=== PATIENT | female | born 1980 | race African-American/Black ===

== ENCOUNTER 2016-11-23 | Emergency (ER) | payer MEDICARE, OTHER ==
[~2016-11-23] VITALS: Ht 172.7 cm; Wt 88.0 kg
[~2016-11-23] MED LIST: CYCL1TAB29 PO; LISI10TA3 PO; NAPR500 PO; POTA-163 PO
[2016-11-23 00:02] VITALS: BP 143/87; PULSE 91; RESP 15; TEMP 98.3; O2SAT 97
--- NOTE | 2016-11-23 01:18 | PD ---
HPI Chief Complaint: Headache Time Seen by Provider: 01:17 Travel History International Travel<30 days: No Contact w/Intl Traveler<30days: No Traveled to known affect area: No History of Present Illness HPI 36 year old female came to the emergency room for headache, weight gain, amenorrhea for 5 months. Patient is curious to find out if she is . She looks quite comfortable and was on her cell phone. She says she has a primary care but did not address this issue with the primary care. She does have a history of hydrocephalus and the headache started last night and that's why she wanted to be checked out for everything was she is here. Vital signs were stable. A bedside urine was done which was negative. [facility] Past Medical History Narrative Medical List of her past medical, surgical, social and family history was reviewed from the nursing note. Hx Anticoagulant Therapy: Yes (ASA) Atrial Fibrillation: No Autoimmune Disease: No Blood Disorders: No Cancer: No Cardiovascular Problems: Yes (HTN) High Cholesterol: Yes Diminished Hearing: No Endocrine: No Genitourinary: Yes Headaches: Yes Hypertension: Yes Immune Disorder: No Musculoskeletal: No Neurologic: Yes (HYDROCEPHALUS) Psychiatric: No Reproductive: No Respiratory: No Immunizations Current: Yes Sickle Cell Disease: No Tetanus Vaccination: Unknown Influenza Vaccination: No ?: Unknown LMP: 06/22/2016 : 2 Para: 0 Miscarriage: 2 : 0 Past Surgical History AICD: No Arteriovenous Shunt: No Body Medical Devices: FLUIDS ON THE BRAIN Insulin Pump: No Joint Replacement: No Pacemaker: No Other Surgery: Yes (SPINAL TAP TO RELIEVE HYDROCEPHALUS) Social History Alcohol Use: No Tobacco Use: Yes (1ppd) Substance Use: No Allergies-Medications (Allergen,Severity, Reaction): Coded Allergies: Tramadol (Verified Allergy, Intermediate, HIVES, 11/23/16) Comments List of her allergies reviewed from the nursing note. Reported Meds & Prescriptions Reported Meds & Active Scripts Active Reported Lisinopril 10 Mg Tab 10 Mg PO DAILY Narrative Medication List of her home medications reviewed from the nursing note. Review of Systems Except as stated in HPI: all other systems reviewed are Neg Physical Exam Narrative GENERAL: Awake, alert, no obvious distress, obese SKIN: Warm and dry. HEAD: Atraumatic. Normocephalic. EYES: Pupils equal and round. No scleral icterus. No injection or drainage. ENT: No nasal bleeding or discharge. Mucous membranes pink and moist. NECK: Trachea midline. No JVD. CARDIOVASCULAR: Regular rate and rhythm. No murmur appreciated. RESPIRATORY: No accessory muscle use. Clear to auscultation. Breath sounds equal bilaterally. GASTROINTESTINAL: Abdomen soft, non-tender, nondistended. Hepatic and splenic margins not palpable. MUSCULOSKELETAL: No obvious deformities. No clubbing. No cyanosis. No edema. NEUROLOGICAL: Awake and alert. No obvious cranial nerve deficits. Motor grossly within normal limits. Normal speech. PSYCHIATRIC: Appropriate mood and affect; insight and judgment normal. Data Data Last Documented VS Orders Complete Blood Count With Diff (11/23/16 01:35) Basic Metabolic Panel (Bmp) (11/23/16 01:35) Beta Hcg (Quant/Titer) (11/23/16 01:35) Labs Laboratory Tests Test 11/23/16 02:00 White Blood Count 12.4 TH/MM3 Red Blood Count 5.37 MIL/MM3 Hemoglobin 13.2 GM/DL Hematocrit 41.0 % Mean Corpuscular Volume 76.5 FL Mean Corpuscular Hemoglobin 24.5 PG Mean Corpuscular Hemoglobin 32.1 % Concent Red Cell Distribution Width 15.2 % Platelet Count 304 TH/MM3 Mean Platelet Volume 7.8 FL Neutrophils (%) (Auto) 64.9 % Lymphocytes (%) (Auto) 24.8 % Monocytes (%) (Auto) 7.4 % Eosinophils (%) (Auto) 2.1 % Basophils (%) (Auto) 0.8 % Neutrophils # (Auto) 8.0 TH/MM3 Lymphocytes # (Auto) 3.1 TH/MM3 Monocytes # (Auto) 0.9 TH/MM3 Eosinophils # (Auto) 0.3 TH/MM3 Basophils # (Auto) 0.1 TH/MM3 CBC Comment AUTO DIFF Differential Comment AUTO DIFF CONFIRMED Platelet Estimate NORMAL Platelet Morphology Comment NORMAL Ovalocytes 1+ Sodium Level 140 MEQ/L Potassium Level 4.1 MEQ/L Chloride Level 106 MEQ/L Carbon Dioxide Level 25.2 MEQ/L Anion Gap 9 MEQ/L Blood Urea Nitrogen 19 MG/DL Creatinine 0.66 MG/DL Estimat Glomerular Filtration 123 ML/MIN Rate Random Glucose 95 MG/DL Calcium Level 8.8 MG/DL Human Chorionic Gonadotropin, LESS THAN 1 Quant MIU/ML [facility] Medical Decision Making Medical Screen Exam Complete: Yes Emergency Medical Condition: Yes Medical Record Reviewed: Yes Differential Diagnosis Headache, hydrocephalus, obesity, amenorrhea Narrative Course 2:30 AM Blood test and CAT scan's were ordered and is waiting for the results when I was told by the nurse that patient had left without telling anybody. I did not get a chance to talk to her. The nurse did not know that she was leaving either. She did not sign any AMA. Procedures EKG Prior to Arrival: No Diagnosis Primary Impression: Headache Qualified Code: R51 - Acute intractable headache, unspecified headache type Disposition: 07 AGAINST MEDICAL ADVICE Condition: Dominique Anglin MD Nov 23, 2016 01:17 Primary Impression: Headache Disposition: 07 AGAINST MEDICAL ADVICE Condition: Dominique Anglin MD Nov 23, 2016 01:17 Condition: Dominique Anglin MD Nov 23, 2016 01:17
[2016-11-23 02:34] LABS: BASOPHIL # 0.1 TH/MM3 (0-0.2); BASOPHIL % 0.8 % (0.0-2.0); EOSINOPHIL # 0.3 TH/MM3 (0-0.4); EOSINOPHIL % 2.1 % (0.0-4.0); LYMPH % 24.8 % (9.0-44.0); LYMPHOCYTE # 3.1 TH/MM3 (1.0-4.8); MEAN CELL VOLUME 76.5 FL (80.0-100.0); MEAN CORPUSCULAR HEMOGLOBIN 24.5 PG (27.0-34.0); MEAN CORPUSCULAR HGB CONC 32.1 % (32.0-36.0); MONO % 7.4 % (0.0-8.0); NEUT % 64.9 % (16.0-70.0); PLATELET COUNT 304 TH/MM3 (150-450); RED BLOOD COUNT 5.37 MIL/MM3 (4.00-5.30); RED CELL DISTRIBUTION WIDTH 15.2 % (11.6-17.2); WHITE BLOOD COUNT 12.4 TH/MM3 (4.0-11.0)
[2016-11-23 02:39] LABS: HEMO FLAGS AUTO DIFF
[2016-11-23 03:04] LABS: BETA HCG QUANT LESS THAN 1 MIU/ML (0-5)
[2016-11-23 03:20] LABS: OVALOCYTES 1+ (NORMAL); PLATELET ESTIMATE SMEAR NORMAL (NORMAL); PLATELET MORPHOLOGY NORMAL (NORMAL)
[2016-11-23 03:21] LABS: SCAN/DIFF AUTO DIFF CONFIRMED
[2016-11-23 03:22] LABS: ANION GAP 9 MEQ/L (5-15); BICARBONATE 25.2 MEQ/L (21.0-32.0); BLOOD UREA NITROGEN 19 MG/DL (7-18); CHLORIDE 106 MEQ/L (98-107); GLOMERULAR FILTRATION RATE 123 ML/MIN (>89); POTASSIUM 4.1 MEQ/L (3.5-5.1); SODIUM (NA) 140 MEQ/L (136-145)
== END 2016-11-23 04:09 | disposition left against medical advice (07) ==
LOC: NEPE
DX: R51 Headache (principal); I10 Essential (primary) hypertension; F17.210 Nicotine dependence, cigarettes, uncomplicated; E78.00 Pure hypercholesterolemia, unspecified
CPT/HCPCS: 80048; 84702; 85025; 99284

== ENCOUNTER 2017-01-10 00:04 | Emergency (ER) | payer MEDICARE, MEDICAID, OTHER ==
[~2017-01-10] VITALS: Ht 172.7 cm; Wt 110.0 kg
[~2017-01-10 00:04] MED LIST changes: -CYCL1TAB29 PO; -NAPR500 PO; -POTA-163 PO
[2017-01-10 00:07] VITALS: BP 161/79; PULSE 86; RESP 18; TEMP 98.7; O2SAT 99
[2017-01-10 00:20] VITALS: BP 139/84; PULSE 78; RESP 18; O2SAT 98
[2017-01-10] MEDS ORDERED: ATOR10TA15 PO (00:26)
[2017-01-10] MEDS ORDERED: SODIUM CHLORIDE 0.9% FLUSH 10 ML FLUSH IVF PRN (00:45)
[2017-01-10] MEDS ORDERED: ASPIRIN 81 MG CHEW TAB PO ONE (00:45)
[2017-01-10] MEDS ORDERED: NITROGLYCERIN 0.4 MG SL 25 TABS/BTL SL ONE (00:45)
--- NOTE | 2017-01-10 00:45 | PD ---
HPI Chief Complaint: Chest Pain Time Seen by Provider: 00:37 Travel History International Travel<30 days: No Contact w/Intl Traveler<30days: No Traveled to known affect area: No History of Present Illness HPI 36-year-old female here for evaluation of chest pain. Patient has history of hypertension and hypercholesterolemia. She reports having intermittent substernal chest tightness throughout the day today. Although triage assessment reports that the patient has had an [place], the patient states that she believes she may have had an KY in the past. She is a nonsmoker. No family history of cardiac disease. There are no modifying factors to her pain. Pain is moderate in intensity and is intermittent. No fevers, chills, cough, recent illness. No history of DVT or PE. PFSH Past Medical History Hx Anticoagulant Therapy: Yes (ASA) Atrial Fibrillation: No Autoimmune Disease: No Blood Disorders: No Cancer: No Cardiovascular Problems: Yes (HTN) High Cholesterol: Yes Diminished Hearing: No Endocrine: No Genitourinary: Yes Headaches: Yes Hypertension: Yes Immune Disorder: No Musculoskeletal: No Neurologic: Yes (HYDROCEPHALUS) Psychiatric: No Reproductive: No Respiratory: No Immunizations Current: Yes Sickle Cell Disease: No Tetanus Vaccination: Unknown Influenza Vaccination: No ?: Not LMP: 12/16/2016 : 2 Para: 0 Miscarriage: 2 : 0 Past Surgical History AICD: No Arteriovenous Shunt: No Body Medical Devices: FLUIDS ON THE BRAIN Insulin Pump: No Joint Replacement: No Pacemaker: No Other Surgery: Yes (SPINAL TAP TO RELIEVE HYDROCEPHALUS) Social History Alcohol Use: No Tobacco Use: No (former smoker) Substance Use: No Allergies-Medications (Allergen,Severity, Reaction): Coded Allergies: Tramadol (Verified Allergy, Intermediate, HIVES, 01/10/17) Reported Meds & Prescriptions Reported Meds & Active Scripts Active Reported Atorvastatin (Atorvastatin Calcium) 10 Mg Tab 1 Tab PO HS Lisinopril 10 Mg Tab 10 Mg PO DAILY Review of Systems Except as stated in HPI: all other systems reviewed are Neg Physical Exam Narrative GENERAL: Well-developed, well-nourished, overweight, comfortable, no acute distress. SKIN: Focused skin assessment warm/dry. HEAD: Atraumatic. Normocephalic. EYES: Pupils equal and round. No scleral icterus. No injection or drainage. ENT: Mucous membranes pink and moist. NECK: Trachea midline. No JVD. CARDIOVASCULAR: Regular rate and rhythm. Distal pulses brisk and equal bilaterally. RESPIRATORY: No accessory muscle use. Clear to auscultation. Breath sounds equal bilaterally. GASTROINTESTINAL: Abdomen soft, non-tender, nondistended. MUSCULOSKELETAL: No obvious deformities. No clubbing. No cyanosis. No edema. NEUROLOGICAL: Awake and alert. No obvious cranial nerve deficits. Motor grossly within normal limits. Normal speech. PSYCHIATRIC: Appropriate mood and affect; insight and judgment normal. Data Data Last Documented VS Vital Signs Date Time Temp Pulse Resp B/P Pulse Ox O2 Delivery O2 Flow Rate FiO2 01/10/17 02:52 78 18 128/74 99 01/10/17 01:30 Room Air 01/10/17 00:07 98.7 Orders Electrocardiogram (01/10/17 00:39) Basic Metabolic Panel (Bmp) (01/10/17 00:39) Ckmb (Isoenzyme) Profile (01/10/17 00:39) Complete Blood Count With Diff (01/10/17 00:39) D-Dimer (01/10/17 00:39) Magnesium (Mg) (01/10/17 00:39) Prothrombin Time / Inr (Pt) (01/10/17 00:39) Act Partial Throm Time (Ptt) (01/10/17 00:39) Troponin I (01/10/17 00:39) Chest, Single Ap (01/10/17 00:39) Ecg Monitoring (01/10/17 00:39) Bilateral Bp Monitoring (01/10/17 00:39) Iv Access Insert/Monitor (01/10/17 00:39) Oximetry (01/10/17 00:39) Oxygen Administration (01/10/17 00:39) Aspirin Chew (Aspirin Chew) (01/10/17 00:45) Sodium Chloride 0.9% Flush (Ns Flush) (01/10/17 00:45) Nitroglycerin Sl (Nitrostat Sl) (01/10/17 00:45) Beta Hcg (Quant/Titer) (01/10/17 00:39) CKMB (01/10/17 00:50) CKMB% (01/10/17 00:50) Labs Laboratory Tests Test 01/10/17 00:50 White Blood Count 11.7 TH/MM3 Red Blood Count 5.38 MIL/MM3 Hemoglobin 13.1 GM/DL Hematocrit 41.0 % Mean Corpuscular Volume 76.2 FL Mean Corpuscular Hemoglobin 24.3 PG Mean Corpuscular Hemoglobin 31.9 % Concent Red Cell Distribution Width 14.5 % Platelet Count 304 TH/MM3 Mean Platelet Volume 7.3 FL Neutrophils (%) (Auto) 60.6 % Lymphocytes (%) (Auto) 28.3 % Monocytes (%) (Auto) 9.0 % Eosinophils (%) (Auto) 1.7 % Basophils (%) (Auto) 0.4 % Neutrophils # (Auto) 7.1 TH/MM3 Lymphocytes # (Auto) 3.3 TH/MM3 Monocytes # (Auto) 1.1 TH/MM3 Eosinophils # (Auto) 0.2 TH/MM3 Basophils # (Auto) 0.0 TH/MM3 CBC Comment AUTO DIFF Differential Comment AUTO DIFF CONFIRMED Prothrombin Time 10.5 SEC Prothromb Time International 1.0 RATIO Ratio Activated Partial 27.8 SEC Thromboplast Time D-Dimer Quantitative (PE/DVT) 0.24 MG/L FEU Sodium Level 142 MEQ/L Potassium Level 3.7 MEQ/L Chloride Level 107 MEQ/L Carbon Dioxide Level 27.6 MEQ/L Anion Gap 7 MEQ/L Blood Urea Nitrogen 14 MG/DL Creatinine 0.69 MG/DL Estimat Glomerular Filtration 117 ML/MIN Rate Random Glucose 101 MG/DL Calcium Level 8.9 MG/DL Magnesium Level 2.2 MG/DL Total Creatine Kinase 169 U/L Creatine Kinase MB 1.4 NG/ML Troponin I LESS THAN 0.02 NG/ML Human Chorionic Gonadotropin, LESS THAN 1 Quant MIU/ML MDM Medical Decision Making Medical Screen Exam Complete: Yes Emergency Medical Condition: Yes Interpretation(s) EKG: Sinus, rate 78, normal axis, normal intervals, no acute ischemic abnormality. Differential Diagnosis ACS, pneumothorax, pericarditis, PE, pneumonia, musculoskeletal pain Narrative Course Vital signs reviewed. Labs reviewed. First set of cardiac enzymes are negative. D-dimer is negative at 0.24. Chest x-ray shows no acute disease. I told the patient that I would like to do a second set of cardiac enzymes, however she would like to leave AMA. She understands the risks of leaving AMA including not limited to and permanent disability. She has the capacity to make this decision. She was told that she could return to the emergency department at any time and should return should she have any worsening symptoms or any other concerns. PMD follow-up this week. AMA: The risks of leaving against medical advice without further evaluation treatment were discussed with the patient. These risks include cardiac dysfunction, cardiac dysrhythmia, possible heart attack, possible stroke or . The patient indicated understanding of these risks and appeared to have the capacity to make this decision. Diagnosis Primary Impression: Left against medical advice Additional Impression: Chest pain Qualified Code: R07.9 - Chest pain, unspecified type Referrals: Primary Care Physician 3 days Additional Instructions: Follow-up with your primary care physician this week. Return to the emergency department for worsening symptoms or any other concerns. Disposition: 07 AGAINST MEDICAL ADVICE Condition: Stable Nikita Glaser MD January 10, 2017 00:45
[2017-01-10 01:12] LABS: AUTOMATED NEUTROPHIL # 7.1 TH/MM3 (1.8-7.7); BASOPHIL % 0.4 % (0.0-2.0); EOSINOPHIL # 0.2 TH/MM3 (0-0.4); EOSINOPHIL % 1.7 % (0.0-4.0); LYMPH % 28.3 % (9.0-44.0); LYMPHOCYTE # 3.3 TH/MM3 (1.0-4.8); MEAN CELL VOLUME 76.2 FL (80.0-100.0); MEAN CORPUSCULAR HEMOGLOBIN 24.3 PG (27.0-34.0); MEAN CORPUSCULAR HGB CONC 31.9 % (32.0-36.0); NEUT % 60.6 % (16.0-70.0); PLATELET COUNT 304 TH/MM3 (150-450); RED BLOOD COUNT 5.38 MIL/MM3 (4.00-5.30); RED CELL DISTRIBUTION WIDTH 14.5 % (11.6-17.2); WHITE BLOOD COUNT 11.7 TH/MM3 (4.0-11.0)
[2017-01-10 01:28] LABS: ANION GAP 7 MEQ/L (5-15); BICARBONATE 27.6 MEQ/L (21.0-32.0); BLOOD UREA NITROGEN 14 MG/DL (7-18); CHLORIDE 107 MEQ/L (98-107); GLOMERULAR FILTRATION RATE 117 ML/MIN (>89); MAGNESIUM 2.2 MG/DL (1.5-2.5); POTASSIUM 3.7 MEQ/L (3.5-5.1); SODIUM (NA) 142 MEQ/L (136-145)
[2017-01-10 01:30] VITALS: BP 136/78; PULSE 78; RESP 18; O2SAT 97
--- NOTE | 2017-01-10 01:31 | RADRPT ---
EXAM DATE/TIME: 01/10/2017 01:11 [facility] COMPARISON: No previous studies available for comparison. INDICATIONS : Chest pain and shortness of breath. MEDICAL HISTORY : None. SURGICAL HISTORY : None. ENCOUNTER: Initial ACUITY: 1 day PAIN SCORE: 7/10 LOCATION: chest FINDINGS: A single view of the chest demonstrates the lungs to be symmetrically aerated without evidence of mas s, infiltrate or effusion. The cardiomediastinal contours are unremarkable. Osseous structures are intact. CONCLUSION: No acute disease. Chon Nino MD on January 10, 2017 at 1:30 Board Certified Radiologist. This report was verified electronically.
[2017-01-10 01:32] LABS: BETA HCG QUANT LESS THAN 1 MIU/ML (0-5); CREATINE KINASE 169 U/L (26-192)
[2017-01-10 01:38] LABS: HEMO FLAGS AUTO DIFF
[2017-01-10 01:44] LABS: CKMB 1.4 NG/ML (0.5-3.6)
[2017-01-10 02:17] LABS: APTT (PATIENT) 27.8 SEC (24.3-30.1); PROTHROMBIN TIME - PATIENT 10.5 SEC (9.8-11.6)
[2017-01-10 02:52] VITALS: BP 128/74
[2017-01-10 02:53] LABS: SCAN/DIFF AUTO DIFF CONFIRMED
--- NOTE | 2017-01-10 15:28 | EKG ---
Date Performed: 01/10/2017 Time Performed: 01:01:12 PTAGE: 36 years EKG: Sinus rhythm NORMAL ECG PREVIOUS TRACING : 03/10/2015 21.22 DOCTOR: Tristian Wheatley Interpretating Date/Time 01/10/2017 15:25:17
== END 2017-01-10 02:53 | disposition left against medical advice (07) ==
LOC: NEPE 00:04
DX: R07.9 Chest pain, unspecified (principal); I10 Essential (primary) hypertension; E78.00 Pure hypercholesterolemia, unspecified; Z87.891 Personal history of nicotine dependence; Z79.899 Other long term (current) drug therapy
CPT/HCPCS: 71010; 80048; 82550; 82552; 83735; 84484; 84702; 85025; 85379; 85610; 85730; 93005

== ENCOUNTER 2017-05-20 16:55 | Emergency (ER) | payer MEDICAID, MEDICARE, OTHER ==
[~2017-05-20] VITALS: Ht 175.3 cm; Wt 118.0 kg
[~2017-05-20 16:55] MED LIST changes: +ATOR10TA15 PO
[2017-05-20 16:56] VITALS: BP 145/70; PULSE 80; RESP 16; TEMP 98.4; O2SAT 98
[2017-05-20] MEDS ORDERED: IBUP800T23 PO (17:20)
[2017-05-20] MEDS ORDERED: ROBA500T PO (17:20)
--- NOTE | 2017-05-20 17:20 | PD ---
HPI Chief Complaint: Musculoskeletal Complaint Time Seen by Provider: 17:18 Travel History International Travel<30 days: No Contact w/Intl Traveler<30days: No Traveled to known affect area: No History of Present Illness HPI 36-year-old female presents to the emergency Department with complaint of right- sided low back pain after helping her lift a couch yesterday. Has history of chronic low back pain and her primary care provider prescribed her hydrocodone which he took last night for symptom management. Denies encopresis , incontinence, saddle anesthesias. Denies fever, vomiting, abdominal pain, dysuria, change in stool. Denies IV drug use or cancer. Denies paresthesias, loss of sensation, decreased range of motion, decreased strength to bilateral lower extremity's. Denies change in gait. Patient is aggravated with movement. Allergies to tramadol. Symptoms are mild in severity. Has no medical complaints. No other modifying factors or associated signs and symptoms. PFSH Past Medical History Hx Anticoagulant Therapy: Yes (81MG ASA) Atrial Fibrillation: No Autoimmune Disease: No Blood Disorders: No Cancer: No Cardiovascular Problems: No High Cholesterol: Yes Chemotherapy: No Cerebrovascular Accident: No Diabetes: No Diminished Hearing: No Endocrine: No Genitourinary: Yes Headaches: Yes Hypertension: Yes Immune Disorder: No Musculoskeletal: No Neurologic: Yes (HYDROCEPHALUS) Psychiatric: No Reproductive: No Respiratory: No Immunizations Current: Yes Sickle Cell Disease: No ?: Not : 2 Para: 0 Miscarriage: 2 : 0 Past Surgical History AICD: No Arteriovenous Shunt: No Body Medical Devices: FLUIDS ON THE BRAIN Hysterectomy: No Insulin Pump: No Joint Replacement: No Pacemaker: No Other Surgery: Yes (SPINAL TAP TO RELIEVE HYDROCEPHALUS) Social History Alcohol Use: No Tobacco Use: No (former smoker) Substance Use: No Allergies-Medications (Allergen,Severity, Reaction): Coded Allergies: tramadol (Unverified Allergy, Intermediate, HIVES, 05/20/17) Reported Meds & Prescriptions Reported Meds & Active Scripts Active Ibuprofen 800 Mg Tab 800 Mg PO Q6HR PRN Robaxin (Methocarbamol) 500 Mg Tab 500 Mg PO QID PRN Reported Atorvastatin (Atorvastatin Calcium) 10 Mg Tab 1 Tab PO HS Lisinopril 10 Mg Tab 10 Mg PO DAILY Review of Systems Except as stated in HPI: all other systems reviewed are Neg Physical Exam Narrative GENERAL: Well-nourished, well-developed black female patient, in no acute distress; afebrile, nontoxic-appearing SKIN: Warm and dry. HEAD: Atraumatic. Normocephalic. EYES: Pupils equal and round. No scleral icterus. No injection or drainage. ENT: Mucosa pink and moist. Airway patent. NECK: Trachea midline. CARDIOVASCULAR: Regular rate. RESPIRATORY: No accessory muscle use. GASTROINTESTINAL: Obese. MUSCULOSKELETAL: Bilateral lower extremities supple and non-tense with 2+ pedal pulses and sensory intact; with full range of motion and 5/5 strength. 2 + DTRs bilaterally. Active dorsiflexion and extension of bilateral feet. Right straight leg raise is positive for low back pain. Ambulatory in room with normal gait. Sitting up in bed at 90. No obvious deformities. No clubbing. No cyanosis. No edema. BACK: No midline point tenderness on palpation of the lumbar spine. Tenderness on palpation of right lumbar iliosacral area. No obvious deformities. NEUROLOGICAL: Awake and alert. Oriented 3. No obvious cranial nerve deficits. Motor grossly within normal limits. Normal speech. Moves all extremities. 5/5 strength to all extremities. Sensory intact. PSYCHIATRIC: Appropriate mood and affect; insight and judgment normal. Data Data Last Documented VS Vital Signs Date Time Temp Pulse Resp B/P (MAP) Pulse Ox O2 Delivery O2 Flow Rate FiO2 05/20/17 16:56 98.4 80 16 145/70 (95) 98 Orders Orders Ibuprofen (Motrin) (05/20/17 17:30) Methocarbamol (Robaxin) (05/20/17 17:30) [facility] Medical Decision Making Medical Screen Exam Complete: Yes Emergency Medical Condition: Yes Medical Record Reviewed: Yes Differential Diagnosis Low back strain, sciatica, acute exacerbation of chronic low back pain Narrative Course 36-year-old female with history of chronic low back pain and acute suspicion of chronic low back pain and low back strain. Denies encopresis, incontinence, saddle and is use. Denies IV drug use or cancer. Patient is ambulatory with a normal gait. No midline tenderness on compression of the lumbar spine. Patient has hydrocodone at home from her primary care provider for chronic low back pain. Robaxin and ibuprofen administered in the ER. Robaxin and ibuprofen prescribed for home. Instructed patient to follow up with primary care provider. Patient verbalizes understanding and agreement with treatment plan. Patient is medically cleared and stable for discharge. Discussed reasons to return to the emergency department. Patient agrees with treatment plan. The patients vital signs are stable and the patient is stable for outpatient follow-up and treatment. Patient discharged home, stable and in no acute distress. Diagnosis Primary Impression: Low back strain Qualified Codes: S39.012A - Strain of muscle, fascia and tendon of lower back , initial encounter Additional Impression: Acute exacerbation of chronic low back pain Departure Forms: Tests/Procedures, Work Release Enter return to work date: May 22, 2017 Med/Other Pt SpecificInfo: Prescription(s) given Scripts Ibuprofen (Ibuprofen) 800 Mg Tab 800 MG PO Q6HR Y for PAIN, #30 TAB 0 Refills Prov: Charmaine Obrien 05/20/17 Methocarbamol (Robaxin) 500 Mg Tab 500 MG PO QID Y for MUSCLE SPASM, #30 TAB 0 Refills Prov: Charmaine Obrien 05/20/17 Disposition: 01 DISCHARGE HOME Condition: Stable Charmaine Obrien May 20, 2017 17:20
[2017-05-20] MEDS ORDERED: IBUPROFEN 800 MG TAB PO ONE (17:30)
[2017-05-20] MEDS ORDERED: METHOCARBAMOL 500 MG TAB PO ONE (17:30)
== END 2017-05-20 17:29 | disposition home or self-care (01) ==
LOC: NETRI 16:55 → EDTENT 17:29
DX: S39.012A Strain of muscle, fascia and tendon of lower back, initial encounter (principal); E78.00 Pure hypercholesterolemia, unspecified; I10 Essential (primary) hypertension; X50.0XXA Overexertion from strenuous movement or load, initial encounter; Z87.891 Personal history of nicotine dependence; Z79.899 Other long term (current) drug therapy
CPT/HCPCS: 99283

== ENCOUNTER 2017-06-24 18:41 | Emergency (ER) | payer MEDICARE ==
[~2017-06-24 18:41] MED LIST changes: +IBUP800T23 PO; +ROBA500T PO
[2017-06-24 18:44] VITALS: BP 138/66; PULSE 85; RESP 18; TEMP 98.7; O2SAT 98
== END 2017-06-24 19:17 | disposition left against medical advice (07) ==
LOC: NED 18:41
DX: K92.9 Disease of digestive system, unspecified (principal)
CPT/HCPCS: 99281

== ENCOUNTER 2017-07-31 21:25 | Emergency (ER) | payer MEDICARE, MEDICAID ==
[~2017-07-31] VITALS: Ht 175.3 cm; Wt 120.0 kg
[~2017-07-31 21:25] MED LIST changes: +IBUP1TAB7 PO; -IBUP800T23 PO
[2017-07-31 21:27] VITALS: BP 144/76; PULSE 94; RESP 16; TEMP 98.2; O2SAT 98
[2017-07-31] MEDS ORDERED: SODIUM CHLOR 0.9% 1000 ML INJ 1,000 ML IV SCH ×2 (21:36)
--- NOTE | 2017-07-31 21:36 | PD ---
HPI Chief Complaint: Allergic/Adverse Reaction Time Seen by Provider: 21:32 Travel History International Travel<30 days: No Contact w/Intl Traveler<30days: No Traveled to known affect area: No History of Present Illness HPI 37 yo F complains of itchiness all over for two days. no fever. no dyspnea. pt denies visible rash. no allergen exposure known to patient. denies similar prior episodes. significant other wonders if it may be related to patient's soap. benadryl was marginally helpful. PFSH Past Medical History Hx Anticoagulant Therapy: Yes (81MG ASA) Atrial Fibrillation: No Autoimmune Disease: No Blood Disorders: No Cancer: No Cardiovascular Problems: No High Cholesterol: Yes Chemotherapy: No Cerebrovascular Accident: No Diabetes: No Diminished Hearing: No Endocrine: No Genitourinary: Yes Headaches: Yes Hypertension: Yes Immune Disorder: No Musculoskeletal: No Neurologic: Yes (HYDROCEPHALUS) Psychiatric: No Reproductive: No Respiratory: No Immunizations Current: Yes Sickle Cell Disease: No ?: Not : 2 Para: 0 Miscarriage: 2 : 0 Past Surgical History AICD: No Arteriovenous Shunt: No Body Medical Devices: FLUIDS ON THE BRAIN Hysterectomy: No Insulin Pump: No Joint Replacement: No Pacemaker: No Other Surgery: Yes (SPINAL TAP TO RELIEVE HYDROCEPHALUS) Social History Alcohol Use: No Tobacco Use: No (former smoker) Substance Use: No Allergies-Medications (Allergen,Severity, Reaction): Coded Allergies: tramadol (Unverified Allergy, Intermediate, HIVES, 07/31/17) Reported Meds & Prescriptions Reported Meds & Active Scripts Active Pepcid (Famotidine) 20 Mg Tab 20 Mg PO BID 10 Days Prednisone 20 Mg Tab 20 Mg PO BID 4 Days Ibuprofen 800 Mg Tab 800 Mg PO Q6HR PRN Robaxin (Methocarbamol) 500 Mg Tab 500 Mg PO QID PRN Reported Atorvastatin (Atorvastatin Calcium) 10 Mg Tab 1 Tab PO HS Lisinopril 10 Mg Tab 10 Mg PO DAILY Review of Systems Except as stated in HPI: all other systems reviewed are Neg General / Constitutional: No: Fever Cardiovascular: No: Chest Pain or Discomfort Respiratory: No: Shortness of Breath Physical Exam Narrative GENERAL: 37 yo F, WNWD, mild distress, pt scratching herself somewhat continuously SKIN: Warm and dry. no obvious erythematous lesions/urticaria or obvious etiology for pruritus. HEAD: Atraumatic. Normocephalic. EYES: Pupils equal and round. No scleral icterus. No injection or drainage. ENT: No nasal bleeding or discharge. Mucous membranes pink and moist. Posterior oropharynx widely patent. NECK: Trachea midline. No JVD. CARDIOVASCULAR: Regular rate and rhythm. RESPIRATORY: Speaking in sentences. No tachypnea. Lung clear. GASTROINTESTINAL: Abdomen soft, non-tender, nondistended. Hepatic and splenic margins not palpable. MUSCULOSKELETAL: Extremities without clubbing, cyanosis, or edema. No obvious deformities. NEUROLOGICAL: Awake and alert. No obvious cranial nerve deficits. Motor grossly within normal limits. Five out of 5 muscle strength in the arms and legs. Normal speech. PSYCHIATRIC: Appropriate mood and affect; insight and judgment normal. Data Data Last Documented VS Vital Signs Date Time Temp Pulse Resp B/P (MAP) Pulse Ox O2 Delivery O2 Flow Rate FiO2 07/31/17 23:06 07/31/17 23:06 94 16 07/31/17 21:27 98.2 98 Room Air vs reviewed Orders Orders Complete Blood Count With Diff (07/31/17 21:36) Comprehensive Metabolic Panel (07/31/17 21:36) Lipase (07/31/17 21:36) Iv Access Insert/Monitor (07/31/17 21:36) Ecg Monitoring (07/31/17 21:36) Oximetry (07/31/17 21:36) Sodium Chlor 0.9% 1000 Ml Inj (Ns 1000 M (07/31/17 21:36) Sodium Chloride 0.9% Flush (Ns Flush) (07/31/17 21:45) Diphenhydramine Inj (Benadryl Inj) (07/31/17 21:45) Methylprednisolone So Succ Inj (Solumedr (07/31/17 21:45) Famotidine Inj (Pepcid Inj) (07/31/17 21:45) Sodium Chlor 0.9% 1000 Ml Inj (Ns 1000 M (07/31/17 21:36) Sodium Chloride 0.9% Flush (Ns Flush) (07/31/17 21:45) Epinephrine (1:1000) Inj (Adrenalin (1:1 (07/31/17 21:45) Ed Discharge Order (07/31/17 22:38) Labs Laboratory Tests Test 07/31/17 22:00 White Blood Count 12.3 TH/MM3 Red Blood Count 5.28 MIL/MM3 Hemoglobin 13.0 GM/DL Hematocrit 40.1 % Mean Corpuscular Volume 75.9 FL Mean Corpuscular Hemoglobin 24.7 PG Mean Corpuscular Hemoglobin Concent 32.5 % Red Cell Distribution Width 15.4 % Platelet Count 331 TH/MM3 Mean Platelet Volume 7.2 FL Neutrophils (%) (Auto) 68.4 % Lymphocytes (%) (Auto) 21.2 % Monocytes (%) (Auto) 7.7 % Eosinophils (%) (Auto) 2.1 % Basophils (%) (Auto) 0.6 % Neutrophils # (Auto) 8.4 TH/MM3 Lymphocytes # (Auto) 2.6 TH/MM3 Monocytes # (Auto) 0.9 TH/MM3 Eosinophils # (Auto) 0.3 TH/MM3 Basophils # (Auto) 0.1 TH/MM3 CBC Comment DIFF FINAL Differential Comment Blood Urea Nitrogen 13 MG/DL Creatinine 0.81 MG/DL Random Glucose 99 MG/DL Total Protein 7.6 GM/DL Albumin 3.5 GM/DL Calcium Level 8.5 MG/DL Alkaline Phosphatase 99 U/L Aspartate Amino Transf (AST/SGOT) 28 U/L Alanine Aminotransferase (ALT/SGPT) 55 U/L Total Bilirubin 0.3 MG/DL Sodium Level 141 MEQ/L Potassium Level 3.4 MEQ/L Chloride Level 107 MEQ/L Carbon Dioxide Level 26.3 MEQ/L Anion Gap 8 MEQ/L Estimat Glomerular Filtration Rate 97 ML/MIN Lipase 128 U/L MDM Medical Decision Making Medical Screen Exam Complete: Yes Emergency Medical Condition: Yes Medical Record Reviewed: Yes Differential Diagnosis allergic reaction, anaphylaxis, anaphylactic shock, pancreatitis, hyperbilirubinemia Narrative Course pt will be administered benadryl iv, pepcid iv, solumedrol and epinephrine meds will be given in delta pod while patient is on monitor resolution of symptoms is anticipated and pt should be ok for discharge within three hours Scripts Famotidine (Pepcid) 20 Mg Tab 20 MG PO BID for 10 Days, #20 TAB 0 Refills Prov: Kentrell Lawrence MD 07/31/17 Prednisone (Prednisone) 20 Mg Tab 20 MG PO BID for 4 Days, #8 TAB 0 Refills Prov: Kentrell Lawrence MD 07/31/17 Kentrell Lawrence MD Jul 31, 2017 21:36
[2017-07-31] MEDS ORDERED: methylPREDNISolone SOD SUCC 125 MG/2 ML VIAL IV PUSH ONE (21:45)
[2017-07-31] MEDS ORDERED: FAMOTIDINE 20 MG/2 ML VIAL IV PUSH ONE (21:45)
[2017-07-31] MEDS ORDERED: diphenhydrAMINE HCL 50 MG/ML VIAL IVP ONE (21:45)
[2017-07-31] MEDS ORDERED: SODIUM CHLORIDE 0.9% FLUSH 10 ML FLUSH IV FLUSH PRN ×2 (21:45)
[2017-07-31] MEDS ORDERED: EPINEPHrine HCL (1:1000) 1 MG/ML VIAL IM ONE (21:45)
[2017-07-31 22:04] VITALS: BP 135/85
[2017-07-31 22:11] LABS: AUTOMATED NEUTROPHIL # 8.4 TH/MM3 (1.8-7.7); BASOPHIL # 0.1 TH/MM3 (0-0.2); BASOPHIL % 0.6 % (0.0-2.0); EOSINOPHIL # 0.3 TH/MM3 (0-0.4); EOSINOPHIL % 2.1 % (0.0-4.0); HEMATOCRIT 40.1 % (35.0-46.0); HEMO FLAGS DIFF FINAL; LYMPH % 21.2 % (9.0-44.0); LYMPHOCYTE # 2.6 TH/MM3 (1.0-4.8); MEAN CELL VOLUME 75.9 FL (80.0-100.0); MEAN CORPUSCULAR HEMOGLOBIN 24.7 PG (27.0-34.0); MEAN CORPUSCULAR HGB CONC 32.5 % (32.0-36.0); MONO % 7.7 % (0.0-8.0); NEUT % 68.4 % (16.0-70.0); PLATELET COUNT 331 TH/MM3 (150-450); RED BLOOD COUNT 5.28 MIL/MM3 (4.00-5.30); RED CELL DISTRIBUTION WIDTH 15.4 % (11.6-17.2); WHITE BLOOD COUNT 12.3 TH/MM3 (4.0-11.0)
[2017-07-31 22:25] LABS: ALT (GPT) 55 U/L (10-53); ANION GAP 8 MEQ/L (5-15); AST (GOT) 28 U/L (15-37); BICARBONATE 26.3 MEQ/L (21.0-32.0); BLOOD UREA NITROGEN 13 MG/DL (7-18); CHLORIDE 107 MEQ/L (98-107); GLOMERULAR FILTRATION RATE 97 ML/MIN (>89); POTASSIUM 3.4 MEQ/L (3.5-5.1); SODIUM (NA) 141 MEQ/L (136-145)
[2017-07-31 22:27] LABS: ALKALINE PHOSPHATASE 99 U/L (45-117); TOTAL BILIRUBIN ADULT 0.3 MG/DL (0.2-1.0)
[2017-07-31] MEDS ORDERED: PRED20 PO (22:33)
[2017-07-31] MEDS ORDERED: FAMO1TAB37 PO (22:33)
--- NOTE | 2017-07-31 22:38 | PD ---
Physical Exam Narrative Patient was signed out to me pending lab results and medication administration. Please see previous provider's documentation for full H&P. Data Data Last Documented VS Vital Signs Date Time Temp Pulse Resp B/P (MAP) Pulse Ox O2 Delivery O2 Flow Rate FiO2 07/31/17 23:06 07/31/17 23:06 94 16 07/31/17 21:27 98.2 98 Room Air Orders Orders Complete Blood Count With Diff (07/31/17 21:36) Comprehensive Metabolic Panel (07/31/17 21:36) Lipase (07/31/17 21:36) Iv Access Insert/Monitor (07/31/17 21:36) Ecg Monitoring (07/31/17 21:36) Oximetry (07/31/17 21:36) Sodium Chlor 0.9% 1000 Ml Inj (Ns 1000 M (07/31/17 21:36) Sodium Chloride 0.9% Flush (Ns Flush) (07/31/17 21:45) Diphenhydramine Inj (Benadryl Inj) (07/31/17 21:45) Methylprednisolone So Succ Inj (Solumedr (07/31/17 21:45) Famotidine Inj (Pepcid Inj) (07/31/17 21:45) Sodium Chlor 0.9% 1000 Ml Inj (Ns 1000 M (07/31/17 21:36) Sodium Chloride 0.9% Flush (Ns Flush) (07/31/17 21:45) Epinephrine (1:1000) Inj (Adrenalin (1:1 (07/31/17 21:45) Ed Discharge Order (07/31/17 22:38) Labs Laboratory Tests Test 07/31/17 22:00 White Blood Count 12.3 TH/MM3 Red Blood Count 5.28 MIL/MM3 Hemoglobin 13.0 GM/DL Hematocrit 40.1 % Mean Corpuscular Volume 75.9 FL Mean Corpuscular Hemoglobin 24.7 PG Mean Corpuscular Hemoglobin Concent 32.5 % Red Cell Distribution Width 15.4 % Platelet Count 331 TH/MM3 Mean Platelet Volume 7.2 FL Neutrophils (%) (Auto) 68.4 % Lymphocytes (%) (Auto) 21.2 % Monocytes (%) (Auto) 7.7 % Eosinophils (%) (Auto) 2.1 % Basophils (%) (Auto) 0.6 % Neutrophils # (Auto) 8.4 TH/MM3 Lymphocytes # (Auto) 2.6 TH/MM3 Monocytes # (Auto) 0.9 TH/MM3 Eosinophils # (Auto) 0.3 TH/MM3 Basophils # (Auto) 0.1 TH/MM3 CBC Comment DIFF FINAL Differential Comment Blood Urea Nitrogen 13 MG/DL Creatinine 0.81 MG/DL Random Glucose 99 MG/DL Total Protein 7.6 GM/DL Albumin 3.5 GM/DL Calcium Level 8.5 MG/DL Alkaline Phosphatase 99 U/L Aspartate Amino Transf (AST/SGOT) 28 U/L Alanine Aminotransferase (ALT/SGPT) 55 U/L Total Bilirubin 0.3 MG/DL Sodium Level 141 MEQ/L Potassium Level 3.4 MEQ/L Chloride Level 107 MEQ/L Carbon Dioxide Level 26.3 MEQ/L Anion Gap 8 MEQ/L Estimat Glomerular Filtration Rate 97 ML/MIN Lipase 128 U/L MDM Supervised Visit with JUANIS: No Narrative Course Patient presents with generalized pruritus possibly an allergic reaction. There is no airway involvement nor difficulty swallowing. Patient looks great. The patient is tolerating fluids. The patient looks great, the findings are minimal and due to non-progression of symptoms here the patient is safe to discharge home. The patient feels comfortable with plan and will return immediately if symptoms begin to worsen. The patient is to continue histamine 1 and 2 blockade as well as steroids. The patient was instructed to avoid potential precipitating factor and to follow up with their regular physician and or follow up with secretary specialist for definitive allergy testing. The patient agrees with plan. Patient in no obvious distress upon re-evaluation. All pertinent laboratory result(s) discussed with patient/family. Discussed patient with Dr. Lawrence prior to discharge, who is in agreement with plan of care and disposition. Any questions/concerns in reference to patient diagnosis/condition discussed and clarified prior to patient's discharge. Reinforced sheer importance of close follow up with patient's primary physician or primary care clinic. Instructed patient to return to ED immediately, if symptoms return/worsen. Patient showed understanding of above instructions. Further instructions and recommendations were detailed in discharge paperwork. Patient ambulated without difficulty out of ED at discharge. Diagnosis Primary Impression: Generalized pruritus Referrals: [facility] Patient Instructions: General Allergic Reaction (ED), General Instructions, Itchy Skin (ED) Additional Instruction: Follow-up with your primary care physician and/or floriculture teacher for possible allergy testing. Take all medication as prescribed. Use [id number] Claritin or Zyrtec or Benadryl as needed for symptomatic relief. Follow instructions on the packaging. Return to the emergency department if symptoms get worse. Med/Other Pt SpecificInfo: Prescription(s) given Scripts Famotidine (Pepcid) 20 Mg Tab 20 MG PO BID for 10 Days, #20 TAB 0 Refills Prov: Kentrell Lawrence MD 07/31/17 Prednisone (Prednisone) 20 Mg Tab 20 MG PO BID for 4 Days, #8 TAB 0 Refills Prov: Kentrell Lawrence MD 07/31/17 Disposition: 01 DISCHARGE HOME Condition: Stable Freddie Townsend Jul 31, 2017 22:38
[2017-07-31 23:06] VITALS: PULSE 94; RESP 16
== END 2017-07-31 23:12 | disposition home or self-care (01) ==
LOC: NEPD 21:25
DX: L29.8 Other pruritus (principal); E78.00 Pure hypercholesterolemia, unspecified; I10 Essential (primary) hypertension
CPT/HCPCS: 80053; 83690; 85025; 96372; 96374; 96375; 99284; J0171; J1200; J2930; J7030

== ENCOUNTER 2017-10-10 02:44 | Emergency (ER) | payer MEDICARE, MEDICAID ==
[~2017-10-10] VITALS: Ht 175.3 cm; Wt 118.0 kg
[~2017-10-10 02:44] MED LIST changes: +FAMO1TAB37 PO; +PRED20 PO
[2017-10-10 02:45] VITALS: BP 137/90; PULSE 78; RESP 20; TEMP 98.4; O2SAT 99
[2017-10-10] MEDS ORDERED: HYDR-3583 PO (03:07)
[2017-10-10] MEDS ORDERED: KETOROLAC TROMETHAMINE 60 MG/2 ML (IM) VIAL IM ONE (03:45)
[2017-10-10] MEDS ORDERED: ORPHENADRINE INJ 60 MG/2 ML AMP IM ONE (03:45)
[2017-10-10] MEDS ORDERED: DEXAMETHASONE SOD PHOS 20 MG/5 ML VIAL IM ONE (03:45)
[2017-10-10] MEDS ORDERED: CYCL10TA PO (03:46)
[2017-10-10] MEDS ORDERED: IBUP1TAB7 PO (03:46)
--- NOTE | 2017-10-10 03:46 | PD ---
HPI Chief Complaint: Musculoskeletal Complaint Time Seen by Provider: 03:42 Travel History International Travel<30 days: No Contact w/Intl Traveler<30days: No Traveled to known affect area: No History of Present Illness HPI Patient is a 37-year-old female presenting to the emergency department for evaluation of low back pain. 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 Patient states the pain runs stumbled her legs, it feels tight and crampy. Took a Lortab earlier this afternoon but no longer has any left. She reports the pain is a 10 out of 10. There is no alleviating factors. Pain is exacerbated by movement. Onset of symptoms was fairly abrupt. Numbness or weakness in her lower extremities, no bladder or bowel incontinence, no saddle paresthesia. PFSH Past Medical History Hx Anticoagulant Therapy: Yes (81MG ASA) High Cholesterol: Yes Genitourinary: Yes Headaches: Yes Hypertension: Yes Neurologic: Yes (HYDROCEPHALUS) Immunizations Current: Yes ?: Not LMP: "JUST ENDED TODAY" : 2 Para: 0 Miscarriage: 2 : 0 Past Surgical History Other Surgery: Yes Social History Alcohol Use: No Tobacco Use: No (former smoker) Substance Use: No Allergies-Medications (Allergen,Severity, Reaction): Coded Allergies: tramadol (Unverified Allergy, Intermediate, HIVES, 10/10/17) Reported Meds & Prescriptions Reported Meds & Active Scripts Active Ibuprofen 800 Mg Tab 800 Mg PO Q6HR PRN Flexeril (Cyclobenzaprine HCl) 10 Mg Tab 10 Mg PO TID PRN Pepcid (Famotidine) 20 Mg Tab 20 Mg PO BID 10 Days Prednisone 20 Mg Tab 20 Mg PO BID 4 Days Ibuprofen 800 Mg Tab 800 Mg PO Q6HR PRN Reported Hydrocodone-Acetaminophen 10-325 mg Tab 1 Tab PO TID PRN Atorvastatin (Atorvastatin Calcium) 10 Mg Tab 1 Tab PO HS Lisinopril 10 Mg Tab 10 Mg PO DAILY Review of Systems Except as stated in HPI: all other systems reviewed are Neg Musculoskeletal: Positive: Myalgias, Cramping, Pain Physical Exam Narrative GENERAL: Overweight, well-developed, alert female. Patient appears uncomfortable, in no acute distress. SKIN: Warm and dry. HEAD: Atraumatic. Normocephalic. EYES: Pupils equal and round. No scleral icterus. No injection or drainage. ENT: No nasal bleeding or discharge. Mucous membranes pink and moist. NECK: Trachea midline. No JVD. CARDIOVASCULAR: Regular rate and rhythm. RESPIRATORY: No accessory muscle use. Clear to auscultation. Breath sounds equal bilaterally. GASTROINTESTINAL: Abdomen soft, non-tender, nondistended. Hepatic and splenic margins not palpable. MUSCULOSKELETAL: Extremities without clubbing, cyanosis, or edema. No obvious deformities. No tenderness to palpation over lumbar spine, there is no significant tenderness to paraspinal musculature in the lumbar or sacral region. NEUROLOGICAL: Awake and alert. No obvious cranial nerve deficits. Motor grossly within normal limits. Five out of 5 muscle strength in the arms and legs. Normal speech. PSYCHIATRIC: Appropriate mood and affect; insight and judgment normal. Data Data Last Documented VS Vital Signs Date Time Temp Pulse Resp B/P (MAP) Pulse Ox O2 Delivery O2 Flow Rate FiO2 10/10/17 02:45 98.4 78 20 137/90 (106) 99 Room Air Orders Orders Ketorolac Inj (Toradol Inj) (10/10/17 03:45) Orphenadrine Inj (Norflex Inj) (10/10/17 03:45) Dexamethasone Inj (Decadron Inj) (10/10/17 03:45) [facility] Medical Decision Making Medical Screen Exam Complete: Yes Emergency Medical Condition: Yes Medical Record Reviewed: Yes Interpretation(s) Vital Signs Date Time Temp Pulse Resp B/P (MAP) Pulse Ox O2 Delivery O2 Flow Rate FiO2 10/10/17 02:45 98.4 78 20 137/90 (106) 99 Room Air Differential Diagnosis Versus muscle spasm versus radiculopathy versus other Narrative Course Patient is a 37-year-old female presenting for evaluation of low back pain. Patient is neurologically intact with no focal deficits. Patient's order to attempt to alleviate pain. She was reassessed, she reports improvement in her pain. She is observed resting comfortably. Patient was encouraged to follow-up with her primary doctor, continue range of motion exercises, avoid exacerbating activities, and take medications as directed. She was advised anti-inflammatory medications and muscle relaxers may be of more benefit than narcotic pain medication. She was encouraged to return to emergency department for any new or worsening symptoms. Patient verbalizes understanding of these instructions. Patient is stable for discharge. Diagnosis Primary Impression: Acute exacerbation of chronic low back pain Referrals: Primary Care Physician 1 week Patient Instructions: General Instructions, Muscle Spasm (ED), Muscle Strain ( ED) Departure Forms: Tests/Procedures, Work Release Enter return to work date: Oct 12, 2017 Additional Instructions: Follow-up with your primary doctor Continue range of motion exercises, avoid exacerbating activities, avoid bed rest, take medications as directed Return to emergency department for any new or worsening symptoms Apply warm heat to the affected area Med/Other Pt SpecificInfo: Prescription(s) given Scripts Ibuprofen (Ibuprofen) 800 Mg Tab 800 MG PO Q6HR Y for PAIN, #40 TAB 0 Refills Prov: Michelle Villeda 10/10/17 Cyclobenzaprine (Flexeril) 10 Mg Tab 10 MG PO TID Y for MUSCLE SPASM, #30 TAB 0 Refills Prov: Michelle Villeda 10/10/17 Disposition: 01 DISCHARGE HOME Condition: Stable Michelle Villeda Oct 10, 2017 03:46
== END 2017-10-10 04:40 | disposition home or self-care (01) ==
LOC: NEPC 02:44
DX: G89.29 Other chronic pain (principal); M54.5 Low back pain; I10 Essential (primary) hypertension; E78.00 Pure hypercholesterolemia, unspecified; Z87.891 Personal history of nicotine dependence; Z88.8 Allergy status to other drugs, medicaments and biological substances; Z79.899 Other long term (current) drug therapy
CPT/HCPCS: 96372; 99283; J1100; J1885; J2360